=== PATIENT | female | born 1955 | race Caucasian/White ===

== ENCOUNTER → 2020-06-12 10:42 | Outpatient (CLI) | payer MEDICARE, SELFPAY ==
--- NOTE | ~2020-06-12 | DEXA_ITS ---
Bone Density Report Name: Elda Escobar Age: 64 Sex: Female Ethnicity: White Date of : 1955 Indication: osteopenia; parental hip fracture; hysterectomy; postmenopausal Referring Provider: Niraj, Nakita Study: Bone densitometry was performed. Exam Date: June 12, 2020 Accession number: [id number] Bone Density: Region BMD T-score Z-score Classification AP Spine (L1-L4) 0.931 -1.1 0.8 Osteopenia Femoral Neck (Left) 0.663 -1.7 -0.1 Osteopenia Total Hip (Left) 0.793 -1.2 0.0 Osteopenia Femoral Neck (Right) 0.680 -1.5 0.0 Osteopenia Total Hip (Right) 0.815 -1.0 0.2 Normal Total Hip Mean 0.804 -1.1 0.1 Osteopenia World Health Organization criteria for BMD impression classify patients as: Normal (T-score at or above -1.0), Osteopenia (T-score between -1.0 and -2.5), or Osteoporosis (T-score at or below -2.5). 10-year Fracture Risk(1): Major Osteoporotic Fracture 16% Hip Fracture 1.3% Reported Risk Factors: [place] (), Neck BMD=0.663, BMI=21.9, parental fracture (1) FRAX(R) Version 3.08. Fracture probability calculated for an untreated patient. Fracture probability may be lower if the patient has received treatment. Previous Exams: Region Exam Age BMD T-score BMD Change BMD Change Date g/cm2 vs Baseline vs Previous AP Spine(L1-L4) 06/12/2020 64 0.931 -1.1 0.003 0.003 10/18/2016 61 0.929 -1.1 Total Hip(Left) 06/12/2020 64 0.793 -1.2 0.010 0.010 10/18/2016 61 0.783 -1.3 Total Hip(Right) 06/12/2020 64 0.815 -1.0 0.014 0.014 10/18/2016 61 0.801 -1.2 *Denotes significance at 95% confidence level, LSC for AP Spine = 0.022 g/cm2, LSC for Total Hip = 0.027 g/cm2 Clinical Information Provided by Patient: Parent has had a hip fracture Has used the following medications: Calcium, vit D included in Calcium Has the following medical conditions: Hysterectomy Patient maximum height was 67 Menopause Age: 37 Does not regularly consume dairy products Drinks caffeinated beverages Onset of menses at age 11 Number of children 1 Impression: The patient has low bone mass, based on the Left Femoral Neck T-score. The patient has an estimated ten-year risk of hip fracture of 1.3% and an estimated ten-year risk of major fracture of 16%, based on the WHO FRAX algorithm. The patient has risk factors, including: parental hip fracture. No significant bone loss was obse
== END ==
PROVIDERS: PCP Physician Assistant; Visit Provider Physician Assistant
DX: M85.852 Other specified disorders of bone density and structure, left thigh (principal); M85.851 Other specified disorders of bone density and structure, right thigh
CPT/HCPCS: 77080

== ENCOUNTER → 2022-09-23 12:07 | Outpatient (CLI) | payer MEDICARE, SELFPAY ==
--- NOTE | ~2022-09-23 | DEXA_ITS ---
Bone Density Report Name: ALVARO AGRAWAL Age: 66 Sex: Female Ethnicity: White Date of : 1955 Indication: osteopenia; parental hip fracture; hysterectomy; postmenopausal Referring Provider: PINO, CEDRIC Study: Bone densitometry was performed. Exam Date: September 23, 2022 Accession number: [id number] Bone Density: Region BMD T-score Z-score Classification AP Spine (L1-L4) 0.930 -1.1 0.9 Osteopenia Femoral Neck (Left) 0.714 -1.2 0.5 Osteopenia Total Hip (Left) 0.799 -1.2 0.2 Osteopenia Femoral Neck (Right) 0.733 -1.0 0.6 Normal Total Hip (Right) 0.847 -0.8 0.6 Normal Total Hip Mean 0.823 -1.0 0.4 Normal World Health Organization criteria for BMD impression classify patients as: Normal (T-score at or above -1.0), Osteopenia (T-score between -1.0 and -2.5), or Osteoporosis (T-score at or below -2.5). 10-year Fracture Risk(1): Major Osteoporotic Fracture 14% Hip Fracture 1.4% Reported Risk Factors: [place] (), Neck BMD=0.714, BMI=21.9, parental fracture (1) FRAX(R) Version 3.08. Fracture probability calculated for an untreated patient. Fracture probability may be lower if the patient has received treatment. Previous Exams: Region Exam Age BMD T-score BMD Change BMD Change Date g/cm2 vs Baseline vs Previous AP Spine(L1-L4) 09/23/2022 66 0.930 -1.1 0.001 -0.002 06/12/2020 64 0.931 -1.1 0.003 0.003 10/18/2016 61 0.929 -1.1 Total Hip(Left) 09/23/2022 66 0.799 -1.2 0.015 0.005 06/12/2020 64 0.793 -1.2 0.010 0.010 10/18/2016 61 0.783 -1.3 Total Hip(Right) 09/23/2022 66 0.847 -0.8 0.046* 0.032* 06/12/2020 64 0.815 -1.0 0.014 0.014 10/18/2016 61 0.801 -1.2 *Denotes significance at 95% confidence level, LSC for AP Spine = 0.022 g/cm2, LSC for Total Hip = 0.027 g/cm2 Clinical Information Provided by Patient: Parent has had a hip fracture Has used the following medications: Vitamin D, Calcium Has the following medical conditions: Hysterectomy Patient maximum height was 67.0 Menopause Age: 37 Drinks caffeinated beverages Onset of menses at age 11 Number of children 1 Impression: The patient has low bone mass, based on the Left Total Hip T-score. The patient has an estimated ten-year risk of hip fracture of 1.4% and an estimated ten-year risk of major fracture of 14%, based o
== END ==
PROVIDERS: PCP Physician Assistant; Visit Provider Physician Assistant
DX: M85.88 Other specified disorders of bone density and structure, other site (principal); M85.89 Other specified disorders of bone density and structure, multiple sites
CPT/HCPCS: 77080